=== PATIENT | male | born 1960 | race American Indian/Alaskan Native ===

== ENCOUNTER 2021-11-25 15:45 | Emergency (ER) | payer MEDICAID, OTHER ==
[~2021-11-25] VITALS: Ht 177.8 cm; Wt 90.7 kg
[2021-11-25] MEDS ORDERED: LISINOPRIL10 MG PO (16:24)
[2021-11-25] MEDS ORDERED: ROSUVASTATIN CA10 MG PO (16:24)
[2021-11-25] MEDS ORDERED: TAMSULOSIN HCL0.4 MG PO (16:25)
--- NOTE | 2021-11-27 17:35 | EKG ---
[facility] [address] [facility] [place], [place] [address] Signed Normal sinus rhythm Normal ECG No previous ECGs available Confirmed by LUCRECIA OLIVEIRA MD ([id number]) on 11/27/2021 5:35:33 PM Electronically Signed By: LUCRECIA OLIVEIRA MD 11/27/21 1735 PATIENT NAME: ANUP CONNORS Electrocardiogram DATE OF : 60 PHYSICIAN: LUCRECIA OLIVEIRA MD REPORT #: [id number] REPORT IS CONFIDENTIAL AND NOT TO BE RELEASED WITHOUT AUTHORIZATION
== END 2021-11-25 18:48 | disposition home or self-care (01) ==
LOC: ED 15:45
DX: R07.89 Other chest pain (principal); K64.5 Perianal venous thrombosis; Z79.899 Other long term (current) drug therapy
CPT/HCPCS: 36415; 71045; 80053; 84484; 85025; 93005; 93010; 99285-25; A9270

== ENCOUNTER 2024-02-02 12:12 | Inpatient (IN) | payer OTHER ==
[~2024-02-02] VITALS: Ht 177.8 cm
[~2024-02-02 12:12] MED LIST: LISINOPRIL10 MG PO; ROSUVASTATIN CA10 MG PO; TAMSULOSIN HCL0.4 MG PO
[2024-02-02] MEDS ORDERED: CEFTRIAXONE/SODIUM CHLORIDE 2 GM/100 ML PIGGYBACK IV ONE (12:30)
[2024-02-02] MEDS ORDERED: SODIUM CHLORIDE 0.9% 1,000 ML IV ONE ×2 (12:30→14:00)
[2024-02-02] MEDS ORDERED: FOLIC ACID1 MG PO (12:34)
[2024-02-02] MEDS ORDERED: PRIFTIN150 MG PO (12:34)
[2024-02-02] MEDS ORDERED: METHOTREXATE2.5 MG PO (12:35)
[2024-02-02] MEDS ORDERED: ISONIAZID300 MG PO (12:36)
[2024-02-02 13:12] LABS: HEMATOCRIT 44.2 % (35.0-50.0); HEMOGLOBIN 15.2 g/dL (12.0-18.0); MCH 32.7 (27-36); MCHC 34.3 g/dl (30-36); MCV 95.3 fl (81-99); PLATELET COUNT 136 K/uL (140-440); RBC 4.64 M/ul (4.3-5.7); RDW 13.8 (10.5-15.0)
[2024-02-02 13:16] LABS: BILIRUBIN, URINE NEGATIVE (negative); BLOOD/HGB, URINE NEGATIVE (Negative); KETONE, URINE TRACE (Negative); LEUK ESTERASE, URINE NEGATIVE (negative); NITRITE, URINE NEGATIVE (negative)
[2024-02-02 13:28] LABS: ALBUMIN 3.7 g/dL (3.4-5.0); ALBUMIN/GLOBULIN RATIO 0.93 (1.1-2.4); BILIRUBIN, TOTAL 1.2 ng/dL (0.2-1.0); BUN/CREATININE RATIO 8.54 (6.0-28.6); CREATININE, SERUM 1.17 mg/dL (0.70-1.30); PROTEIN, TOTAL 7.7 g/dL (6.4-8.2)
[2024-02-02 13:33] LABS: LACTIC ACID, BLOOD 1.9 mmol/L (0.4-2.0)
[2024-02-02] MEDS ORDERED: ondansetron HCL 4 MG/2 ML VIAL IV ONE (13:45)
[2024-02-02 13:57] LABS: BANDS, MANUAL DIFF 62; LYMPHOCYTES, MANUAL DIFF 5; MONOCYTES, MANUAL DIFF 2; NEUTROPHILS, MANUAL DIFF 31
[2024-02-02 13:58] LABS: INFLUENZA B NAA NEGATIVE (NEGATIVE); RESPIRATORY SYNCYTIAL VIR NAA NEGATIVE (NEGATIVE)
[2024-02-02 14:00] LABS: BASOPHILS, MANUAL DIFF 0; EOSINOPHILS, MANUAL DIFF 0
[2024-02-02] MEDS ORDERED: KETOROLAC TROMETHAMINE 15 MG/ML VIAL IV ONE (14:15)
[2024-02-02] MEDS ORDERED: ACETAMINOPHEN 500 MG TAB PO ONE (14:15)
[2024-02-02] MEDS ORDERED: IBUPROFEN 400 MG TAB PO PRN (17:00)
[2024-02-02] MEDS ORDERED: ondansetron HCL 4 MG/2 ML VIAL IV PRN (17:00)
[2024-02-02] MEDS ORDERED: PYRIDOXINE HCL 50 MG TAB PO SCH (17:09)
[2024-02-02] MEDS ORDERED: LORazepam 1 MG TAB PO PRN (17:15)
[2024-02-02] MEDS ORDERED: THIAMINE HCL 100 MG,FOLIC ACID 1 MG,MULTIVITAMINS 10 ML in SODIUM CHLORIDE 0.9% 1,000 ML IV ONE (17:15)
[2024-02-02 17:27] LABS: GLUCOSE, CSF 69 mg/dL (40-70); PROTEIN, CSF 34 mg/dL (15-45)
[2024-02-02 17:41] VITALS: BP 98/59
[2024-02-02 17:47] LABS: CLARITY, CEREBROSPINAL FLUID CLEAR; COLOR, CEREBROSPINAL FLUID COLORLESS; RBC, CEREBROSPINAL FLUID 2
[2024-02-02 17:48] LABS: WBC, CEREBROSPINAL FLUID <1
--- NOTE | 2024-02-02 17:56 | NUR ---
Patient to the medical floor. Patient is alert and oriented x4, no acute distress. BP a bit soft, unchanged from ER history. Patient able to stand to walk to unit bed. IV fluids started per order. Patient oriented to room.
[2024-02-02] MEDS ORDERED: FLU VACC TS2024-25(6MOS UP)/PF 1 EACH SYR IM ONE (18:30)
[2024-02-02 18:45] VITALS: BP 98/58
--- NOTE | 2024-02-02 19:00 | NUR ---
Pt report received from MACI Hernandez. Pt is resting, awake, supine in bed, family in room. Pt has blankets pulled up to his chin. television on. Pt reports he has a slight headache, declines ice/heat pack, advised he can't have more motrin until around 2000 hours. Pt denies further needs. White board updated, side rails up x4, call light in reach.
[2024-02-02 19:42] VITALS: BP 102/59
[2024-02-02 20:18] VITALS: BP 102/59
[2024-02-02] MEDS ORDERED: MAGNESIUM HYDROXIDE/AL HYDROX 30 ML CUP PO PRN (21:00)
--- NOTE | 2024-02-02 22:05 | NUR ---
call light answered, banana bag complete and pump cleared. iv site wnl, flushes easily and saline locked. no further needs, call light in reach and primary rn samantha updated and aware.
[2024-02-03] VITALS (19 sets, daily range): BP systolic 91–157; BP diastolic 53–85
--- NOTE | 2024-02-03 01:30 | NUR ---
call light answered, pt reports heartburn and requesting medication. prn meds unavailable, pt educated on next available dose and educated to raise hob, milk also provided per pt request. primary rn updated, call light in reach.
--- NOTE | 2024-02-03 02:01 | NUR ---
GOT REPORT FROM DRINKING WATER TECHNICIAN RN.
--- NOTE | 2024-02-03 02:01 | NUR ---
LUMBER TRIPPER OBTAINED VITALS AND INTAKE. NO NEW OUTPUT AT THIS TIME. PT STATES NO NEEDS AND CALL LIGHT IS WITHIN REACH.
--- NOTE | 2024-02-03 02:05 | NUR ---
INTO CHECK ON PATIENT. PATIENT HAS HOB ELEVATED. PT C/O ACID REFLUX. HE HAS HAD ALL THE MEDICATIONS FOR THIS AND ADVISED AT 3:30AM HE CAN HAVE MORE. PATIENT WAS DRINKING MILK. HE NOW HAS FRESH WATER. DENIES ANY CARES AT THIS TIME. AT BEDSIDE SLEEPING. PATIENT HAS OXYGEN ON VIA NC.
--- NOTE | 2024-02-03 04:11 | NUR ---
PATIENT CALLED WITH CALL LIGHT FOR MORE MEDICATION FOR HIS REFLUX. PATIENT STATES HE TAKES OMEPRAZOLE AT HOME TO CONTROL IT. WE WILL LET DOCTOR KNOW IN THE MORNING TO GET IT ORDERED FOR HIM. RECHECKED BP AND ITS STILL STOFT BUT CAME UP A POINT. WILL CONTINUE TO MONITOR. DENIES ANY SYMPTOMS. PATIENT WANTED TO KNOW IF WE HAD "EYE COVERS". PATIENT WAS GIVEN 2 QUIT PACKAGES FOR HIS AND HIM. DENIES ANY OTHER CARES AT THIS TIME.
--- NOTE | 2024-02-03 04:36 | NUR ---
PROVIDER WAS TRANSFERED OVER FROM CCU AND ADVISED OF SOFT BLOOD PRESSURE. DOCTOR SAID TO CRISTINA TO MONITOR. LONG KEEPING MAP OVER 65 AND SLEEPING HE IS OK LEAVING IT ALONE.
--- NOTE | 2024-02-03 05:44 | NUR ---
PATIENT GIVEN FLOMAX. LAB IN CURRENTLY TO DRAW LABS. WILL REPEAT BLOOD PRESSURE.
[2024-02-03 05:54] LABS: EOSINOPHILS 1.4 % (0-6); MONOCYTES 0.6 % (0-12); NEUTROPHILS 97.3 % (39-80)
[2024-02-03 05:57] LABS: BASOPHILS 0.3 % (0-2); HEMATOCRIT 39.4 % (35.0-50.0); HEMOGLOBIN 13.6 g/dL (12.0-18.0); LYMPHOCYTES 0.4 % (24-44); MCH 32.9 (27-36); MCHC 34.4 g/dl (30-36); MCV 95.7 fl (81-99); PLATELET COUNT 91 K/uL (140-440); RBC 4.12 M/ul (4.3-5.7)
[2024-02-03] MEDS ORDERED: TAMSULOSIN HCL 0.4 MG CAP PO SCH (06:00)
[2024-02-03 06:15] LABS: ALBUMIN 2.6 g/dL (3.4-5.0); ALBUMIN/GLOBULIN RATIO 0.84 (1.1-2.4); ANION GAP 14.3 (7-21); BILIRUBIN, TOTAL 2.6 ng/dL (0.2-1.0); BUN/CREATININE RATIO 11.39 (6.0-28.6); CALCIUM 8.1 mg/dL (8.5-10.1); CREATININE, SERUM 1.58 mg/dL (0.70-1.30); MAGNESIUM 1.8 mg/dL (1.8-2.4); POTASSIUM 4.3 mmol/L (3.5-5.1); PROTEIN, TOTAL 5.7 g/dL (6.4-8.2)
--- NOTE | 2024-02-03 07:24 | NUR ---
Patient resting in bed, eyes closed, respirations even and non labored. Patient has no notable distress.
[2024-02-03] MEDS ORDERED: THIAMINE HCL 100 MG TAB PO SCH (08:00)
[2024-02-03] MEDS ORDERED: FOLIC ACID 1 MG TAB PO SCH (08:00)
[2024-02-03 08:03] LABS: INR 1.29 (0.80-1.30); PROTIME 15.4 Sec (11.2-14.2)
--- NOTE | 2024-02-03 08:14 | NUR ---
Board has been updated and call light has been placed within reach.
[2024-02-03] MEDS ORDERED: PANTOPRAZOLE SODIUM 40 MG TABEC PO SCH (09:00)
[2024-02-03] MEDS ORDERED: ACETYLCYSTEINE IV ONE ×2 (09:15→14:15)
[2024-02-03] MEDS ORDERED: TRAMADOL HCL 50 MG TAB PO PRN (09:15)
[2024-02-03] MEDS ORDERED: DEXTROSE 5% IV ONE ×2 (09:15→14:15)
--- NOTE | 2024-02-03 09:53 | NUR ---
ULTRAM 50MG PO ADMIN FOR REPORTS OF HEADACHE.
--- NOTE | 2024-02-03 10:33 | NUR ---
IV ALARMING, ASSISTED WITH RESETTING. APPARENTLY PT ROLLED ONTO SIDE AND DUE TO POSITION OCCLUDED. CONTINUE INFUSION ORDERED. PT DENIES ANY FURTHER NEEDS AT THIS TIME, CALL LIGHT WITHIN REACH. PRESENT AT BEDSIDE.
--- NOTE | 2024-02-03 11:37 | NUR ---
Patient resting, eyes closed, respirations even and non labored. IV patent. Patient reports continued headache, ice pack provided. Patient reports generalized body aches. Family updated with plan of care. Call light within reach.
[2024-02-03] MEDS ORDERED: PHARMACY RENAL DOSE ADJUSTMENT 1 DOSE MISC PO SCH (12:00)
--- NOTE | 2024-02-03 12:25 | NUR ---
Patient requesting medication for acid reflux/nausea. Admin zofran 4mg iv and maalox 30ml at this time. IV patent, fluids infusing. Patient has no needs at this time.
--- NOTE | 2024-02-03 12:27 | NUR ---
Patient is sleeping, nurse when in the room during this rounding check.
--- NOTE | 2024-02-03 13:20 | NUR ---
Patient alert and oriented x4. Patient up to restroom to void. Vital signs taken post ambulation, heart rate tachy 128bmp. Temp 100.3f po. CIWA score of 9 at this time. Patient reports continues headache. Ativan 1mg Po admin admin. Iv site in right AC frequently alarming due to occlusion as it is positional. IV acetylcystein is behind on infusion time due to IV occlusion. Will attempt to place new IV site.
[2024-02-03] MEDS ORDERED: LORazepam 2 MG/ML VIAL IV/IM PRN (13:45)
[2024-02-03] MEDS ORDERED: PHENOBARBITAL SOD 130 MG/ML VIAL IV ONE (13:45)
[2024-02-03] MEDS ORDERED: LORazepam 2 MG/ML VIAL IV ONE (13:45)
--- NOTE | 2024-02-03 13:48 | NUR ---
VORB to admin additional dose of ATIVan 1MG iv once from Dr. Kilpatrick.
--- NOTE | 2024-02-03 13:52 | NUR ---
Nurse has been notified of high temp, and heart rate.
--- NOTE | 2024-02-03 13:52 | NUR ---
DISCUSSED VITALS WITH MD, INFORMED PATIENT IS WITHDRAWLING AT THIS TIME. VITALS Q1 HOURS PER PROTOCOL NOW. PRIMARY RN DISCUSSED ATIVAN IN MY PRESENCE AND CHANGING TO IV ROUTE. PER MD, NO NEED AT THIS TIME FOR REPEAT BLOOD CULTURES.
--- NOTE | 2024-02-03 14:17 | NUR ---
PATIENT TRANSFERRED TO CCU DEPT PER DR. SMART'S ORDER. BEDSIDE REPORT PROVIDED TO MACI SILVA. UPDATED PRIOR AND DURING TRANSFER.
[2024-02-03] MEDS ORDERED: ACETAMINOPHEN 325 MG TAB PO PRN (14:30)
--- NOTE | 2024-02-03 15:08 | NUR ---
PT PUT SUPERVISOR ELEMENTARY EDUCATION LIGHT IN ROOM. IN TO CHECK ON HIM AND HE REPORTED HE WAS "TRYING TO SELECT ONE OF THESE AT THE END. DO YOU KNOW HOW TO DO IT?" ASKED PT ORIENTATION QUESTIONS WHICH HE ANSWERS APPROPRIATELY. PT REINSTRUCTED ABOUT HIS CALL LIGHT FUNCTIONS. WASH CLOTHES TO CHEST AND FOREHEAD REWET WITH COLD WATER TEMP IS STILL 102.8
[2024-02-03] MEDS ORDERED: SODIUM CHLORIDE 0.9% 1,000 ML IV SCH ×2 (15:45→19:45)
[2024-02-03] MEDS ORDERED: PROCHLORPERAZINE EDISYLATE 10 MG/2 ML VIAL IV PRN (15:45)
[2024-02-03] MEDS ORDERED: CEFTRIAXONE/SODIUM CHLORIDE 2 GM/100 ML PIGGYBACK IV SCH ×2 (16:00→21:00)
--- NOTE | 2024-02-03 16:24 | NUR ---
PATIENT TRANSFERRED FROM MED/SURG 109 TO ROOM 127 AT 1400 FOR SEPSIS. PT PLACED ON INDUSTRIAL ENGINEERING INTERN AND HR IN THE 140s. TEMP 103.1 UPON ARRIVAL - MD NOTIFIED AND TYLENOL WAS GIVEN. PT CAN HAVE TYLENOL, JUST ONLY UP TO 2 GM/DAY PER MD. PT HAS BOUNDING PULSES THROUGHOUT. PRIOR TO TYLENOL BEING GIVEN, ICE PACKS WERE APPLIED TO AXILLA AND BILATERAL GROINS TO HELP COOL PATIENT, WELL COLD WASH CLOTH TO HEAD AND CHEST AREA. NO COVERS ON PATIENT EITHER. PT IS SLIGHTLY TREMULOUS, HAS A HEADACHE, AND IS NAUSEOUS. PT'S ROXANA IN ROOM. AFTER TYLENOL WAS GIVEN, HEART RATE STARTING TO TREND DOWN AND CURRENTLY 117. TEMP IS NOW 99.5 ORAL. PT STATES HE IS FEELING A LITTLE BETTER AND HAS BEEN SLEEPING. 2ND BAG OF ACETYLCYSTEIN INFUSING AT 125 ML/HR AND 3RD BAG DUE TO BE HUNG. NEW IV SITE STARTED IN LEFT OUTER FOREARM PER PHOTO TUBE ASSEMBLER. PT HAS BEEN ABLE TO VOID X1 IN URINAL 300 ML CONCENTRATED ORANGISH URINE. PLAN OF CARE DISCUSSED. WILL CONTINUE TO MONITOR.
--- NOTE | 2024-02-03 18:59 | NUR ---
NEW GOWN GIVEN TO PATIENT AFTER SWEATING AND SOAKING PREVIOUS GOWN. PT IS AWAKE, ALERT, AND CALM. IVF CONTINUE AT 125 ML/HR AND 3RD BAG OF ACETYLCYSTEIN IS INFUSING AT 62.5 ML/HR. PT ABLE TO EAT SOME CHICKEN NOODLE SOUP THAT HIS BROUGHT. PT HAS ALSO BEEN DRINKING WATER WELL. LAST VOID WAS 550 ML AND COLOR IS IMPROVING. BED ALARM FOR SAFETY. NO FURTHER ATIVAN HAS BEEN GIVEN TODAY AFTER THE PHENOBARBITAL WAS GIVEN. CIWA MONITORING TO CONTINUE.
--- NOTE | 2024-02-03 19:40 | NUR ---
ROUNDING IN ROOM AFTER REPORT FROM LEONA LUX DAYSHIFT. PATIENT ERSTING IN RECLINER, PATIENT RESTING IN BED EYES CLOSED RELAXED POSITION, RESP RATE 22/MIN
--- NOTE | 2024-02-03 20:27 | NUR ---
PATIENT ASSESSMENT COMPLETE, HE IS ORIENTED X3. HE HAS NOW REQUESTS OR CONCERNS TO VERBALIZE. HIS IS AT BEDSIDE, SHE IS UPDATED ON PLAN OF CARE. SHE HAS NO FURTHER NEEDS OR CONCERNS AT THIS TIME.
--- NOTE | 2024-02-03 22:12 | NUR ---
PATIENT BACK TO BED AFTER, GETTING OUT OF BED TO VOID, SETTING OFF THE BED ALARM, PATIENT AMBULATED TO BATHROOM WITH STEADY GAIT PER STAFF REPORT THAT ASSISTED. THIS RN INTO ASSESS, PATIENT REPORTS CHASE PAIN 5/10, NO OTHER CONCERNS AT THIS TIME.
--- NOTE | 2024-02-03 22:27 | NUR ---
PATIENT REPORTS 5/10 CHASE, ULTRAM ADMINISTERED, HE HAS NO OTHER CONCERNS OR REQUESTS.
[2024-02-04] VITALS (18 sets, daily range): BP systolic 112–168; BP diastolic 71–118
--- NOTE | 2024-02-04 00:40 | NUR ---
PATIENT CIWA IS 9, BASED ON SWEATING, TREMORS, HEADACHE, ALSO HEART RATE ELEVATED, 1MG PO ATIVAN ADMINISTERED AT THIS TIME. PATIENT VOIDED 400ML URINE IN URINAL. HE VERBALIZED NO FURTHER NEEDS AT THIS TIME.
--- NOTE | 2024-02-04 02:47 | NUR ---
PATIENT RESTING QUIETLY IN BED, NO DISTRESS NOTED, SLIGHT SNORING NOTED RR 24/MIN. PATIENTS IS RESTING IN RECLINER IN ROOM.
--- NOTE | 2024-02-04 04:07 | NUR ---
ROUNDING, PATIENT RESTING IN BED, NO DISTRESS NOTED RESP RATE 22/MIN
--- NOTE | 2024-02-04 05:14 | NUR ---
PATIENT A/O X4, HE REPORTS NO HEADACHE, NO PAIN ANYWHERE. HE IS CURRENTLY USING THE URINAL. AM ASSESSMENT COMPLETE. NO NEW CONCERNS. HE REPORTS HE HAS SLEPT WELL OVERNIGHT.
[2024-02-04 05:21] LABS: BASOPHILS 0.4 % (0-2); EOSINOPHILS 5.7 % (0-6); HEMATOCRIT 37.8 % (35.0-50.0); LYMPHOCYTES 6.2 % (24-44); MCH 32.7 (27-36); MCHC 34.5 g/dl (30-36); MCV 94.9 fl (81-99); MONOCYTES 5.4 % (0-12); NEUTROPHILS 82.3 % (39-80); PLATELET COUNT 85 K/uL (140-440); RBC 3.98 M/ul (4.3-5.7); RDW 14.1 (10.5-15.0)
[2024-02-04 05:38] LABS: ALBUMIN 2.4 g/dL (3.4-5.0); ALBUMIN/GLOBULIN RATIO 0.77 (1.1-2.4); ANION GAP 13.7 (7-21); BILIRUBIN, TOTAL 2.6 ng/dL (0.2-1.0); BUN/CREATININE RATIO 8.92 (6.0-28.6); CALCIUM 7.5 mg/dL (8.5-10.1); CREATININE, SERUM 1.12 mg/dL (0.70-1.30); POTASSIUM 3.7 mmol/L (3.5-5.1); PROTEIN, TOTAL 5.5 g/dL (6.4-8.2)
--- NOTE | 2024-02-04 09:24 | NUR ---
IN PATIENT'S ROOM FOR AM ASSESSMENT. PT IS AWAKE, CALM, AND ORIENTED X4. PT'S ROXANA IN ROOM. PATIENT REPORTS FEELING BETTER COMPARED TO YESTERDAY BUT STILL NOT FEELING GREAT, HAS A HEADACHE THAT IS 3/10 AT THIS TIME. PT WANTING TO TAKE A SHOWER AROUND 1100 THIS AM. CIWA IS 5 AT THIS TIME. WILL CONTINUE TO MONITOR.
--- NOTE | 2024-02-04 11:18 | NUR ---
preparing pt for shower. while getting ready, pt became nauseas and started vomitting. prn zofran given per emar. pt will attempt to shower once nausea settles. call light within reach
--- NOTE | 2024-02-04 11:55 | NUR ---
PATIENT HAD ONE BOUT OF EMESIS AROUND 1130. PATIENT STATES IT SORT OF CAME OUT OF NO WHERE. PRN ZOFRAN GIVEN. PATIENT THEN C/O HEADACHE AND PRN ULTRAM GIVEN FOR THAT. PT WANTING TO SHOWER AND IS NOW IN SHOWER ROOM IN 126 WITH HIS 'S ASSISTANCE. LINENS ON BED CHANGED. HR IN THE 110s WITH ACTIVITY. WILL CONTINUE TO MONITOR.
--- NOTE | 2024-02-04 12:29 | NUR ---
PATIENT DONE WITH SHOWER AND WHILE GETTING DRESSED, DOES BECOME NAUSEOUS AGAIN AND VOMITS IN TOILET. PRN COMPAZINE GIVEN. PT NOW RESTING IN BED BUT DOES NOT WANT ANY LUNCH AT THIS TIME.
[2024-02-04] MEDS ORDERED: lisinopriL 10 MG TAB PO SCH (13:32)
[2024-02-04 18:36] LABS: HEPATITIS A ANTIBODY, IGM Negative (Negative); HEPATITIS B CORE ANTIBODY, IGM Negative (Negative); HEPATITIS B SURFACE ANTIGEN Negative (Negative); HEPATITIS C AB CIA INTERP Negative (Negative); HEPATITIS C ANTIBODY CIA INDEX 0.12 IV (())
--- NOTE | 2024-02-04 19:45 | NUR ---
ROUNDING ON PATIENT, HE IS RESTING IN BED WITH EYES CLOSED, NO DISTRESS RR 25/MIN, AT BEDSIDE.
--- NOTE | 2024-02-04 20:41 | NUR ---
PATIENT ENDORSES 5/10 HEADACHE PAIN, WARM TEA PROVIDED TO ASSESS POSSIBLE LACK OF USUAL CAFFINE INTAKE. PATIENT REPORTS HE DOES LIKE HOT TEA AND WOULD LIKE TO TRY IT. PATIENT HAS NO OTHER COMPLAINTS AT THIS TIME. ASSESSMENT COMPLETE. NOTED SLIGHT TRACE EDEMA ON FEET, FEET ELEVATED.
--- NOTE | 2024-02-04 21:21 | NUR ---
PATIENT HAS SON IN ROOM TO VISIT AT THIS TIME.
--- NOTE | 2024-02-04 21:31 | NUR ---
PATIENT SITTING UP IN BED WATCHING TV TALKING WITH HIS DAUGHTER AND SON, HE REPORTS HE THINKS THE TEA IS HELPING HIS HEADACHE. NO OTHER REQUESTS OR CONCERNS.
[2024-02-05] VITALS (8 sets, daily range): BP systolic 148–165; BP diastolic 86–104
--- NOTE | 2024-02-05 01:08 | NUR ---
PATIENT RESTING QUIETLY IN BED, ALERT NAME, ASSESSMENT COMPLETE. OXYGEN TITRATED TO 1L N.C., PATIENT SAT UP AND DRANK WATER AND THEN BACK TO REST. NO NEEDS VERBALIZED
--- NOTE | 2024-02-05 03:35 | NUR ---
PATIENT USED CALL LIGHT TO NOTIFY STAFF THIS RN THAT HE HAD USED THE URINAL AND WOULD LIKE MORE WATER AND TISSUES FOR HIS NOSE. PATIENT IS ALERT AND ORINETED 94% OXYGEN SATURATION ON ROOM AIR NOW. PATIENT REPORTS NO FURTHER NEEDS AT THIS TIME. ROXANA PATIENTS SIGNIFICANT OTHER IS SLEEPING ON THE COUCH.
--- NOTE | 2024-02-05 05:25 | NUR ---
PATIENT REPORTS HIS HEADACHE IS BETTER THIS MORNING. ASSESSMENT COMPLETE, HE IS ALERT AND ORIENTED, CIWA 0, FRESH WATER PROVIDED.
[2024-02-05 05:28] LABS: BASOPHILS 0.5 % (0-2); EOSINOPHILS 2.6 % (0-6); HEMATOCRIT 38.6 % (35.0-50.0); HEMOGLOBIN 13.3 g/dL (12.0-18.0); LYMPHOCYTES 5.1 % (24-44); MCH 32.4 (27-36); MCHC 34.4 g/dl (30-36); MCV 94.3 fl (81-99); MONOCYTES 4.8 % (0-12); PLATELET COUNT 98 K/uL (140-440)
[2024-02-05 05:58] LABS: ALBUMIN 2.6 g/dL (3.4-5.0); ALBUMIN/GLOBULIN RATIO 0.81 (1.1-2.4); ANION GAP 14.6 (7-21); BILIRUBIN, TOTAL 3.4 ng/dL (0.2-1.0); BUN/CREATININE RATIO 8.79 (6.0-28.6); CALCIUM 8.1 mg/dL (8.5-10.1); CREATININE, SERUM 0.91 mg/dL (0.70-1.30); POTASSIUM 3.6 mmol/L (3.5-5.1); PROTEIN, TOTAL 5.8 g/dL (6.4-8.2)
--- NOTE | 2024-02-05 08:03 | NUR ---
PATIENT AWAKE, SITTING UP IN BED AND GETTING READY TO EAT BREAKFAST. PT REPORTS FEELING BETTER OVERALL, AND THAT HIS HEADACHE HAS IMPROVED SOME, RATING IT A 3/10 AT THIS TIME. PT DENIES NAUSEA OR ABD PAIN. IVF SALINE LOCKED. PT'S ROXANA REMAINS IN ROOM AND ATTENTIVE TO PATIENT. PATIENT HOPEFUL TO D/C HOME TODAY IF POSSIBLE.
[2024-02-05] MEDS ORDERED: SENNOSIDES/DOCUSATE 1 EA TAB PO SCH (09:00)
[2024-02-05] MEDS ORDERED: POLYETHYLENE GLYCOL 3350 1 PACKET PO SCH (09:00)
--- NOTE | 2024-02-05 10:30 | NUR ---
PATIENT DID HAVE NAUSEA AND 1 BOUT OF EMESIS THIS AM, AROUND 200 ML. PRN ZOFRAN GIVEN. PATIENT NO SITTING UP IN CHAIR. ABLE TO TAKE PO MEDS WITHOUT A PROBLEM. PT STILL HAS HEADACHE.
--- NOTE | 2024-02-05 11:57 | NUR ---
VISITED DURING SPIRITUAL CARE ROUNDS. PT APPEARED TO BE SLEEPING. DID NOT DISTURB. PROVIDED PRAYER.
[2024-02-05 12:03] LABS: QUANTIFERON TB GOLD PLUS Indeterminate (Negative)
--- NOTE | 2024-02-05 12:19 | NUR ---
UR CLINICAL REVIEW: [facility] FOR [facility]AL ADMISSION TO [facility] 02/02/24 @ 1629 ORDER MATCHES REG CLINICALS FAXED TO [facility] FOR REVIEW DISCHARGE TO HOME WHEN STABLE ANTICIPATE 1-2 DAY TO DC 02/07/24
--- NOTE | 2024-02-05 14:35 | NUR ---
Spoke with N[place]um with [place] He is usually active and does not use any DME. He drives. He lives in a house with 2 steps. He denies needs and plans on dc to home when medically cleared. No financial issues. Plan to go home in 1-2 days.
--- NOTE | 2024-02-05 15:35 | NUR ---
medications reconciled with pharmacy records and patient
--- NOTE | 2024-02-05 15:53 | NUR ---
DR. SHOEMAKER IN ROOM TO SEE PATIENT AT THIS TIME AND PLAN OF CARE BEING DISCUSSED. PT EXPRESSING HIS CONTINUED NAUSEA AND LACK OF APPETITE.
--- NOTE | 2024-02-05 16:38 | NUR ---
PATIENT WANTING TO GET UP AND TAKE A SHOWER AFTER ABX IS COMPLETE. PT TO BE ON CLEAR LIQUIDS SINCE THE FOOD ISN'T SETTLING WELL WITH HIM YET. PT TO BE TRANSFERRED TO MED/SURG WHEN ROOM AVAIALBE. TELEMETRY TO BE PLACED. FAMILY IN ROOM. PT EAGER TO GO HOME MAYBE TOMORROW.
--- NOTE | 2024-02-05 20:32 | NUR ---
PATIENT PROVIDED CLEAR LIQUID ENSURE. EDUCATION AND ON BOWEL MEDICATIONS AND WALKING TO PROMOTE MOTILITY. PATIENT ASKED FOR A GRANOLA BAR, THIS RN EXPLAINED AT THIS TIME POINT THE DOCTOR HAS YOU ON A CLEAR LIQUID DIET UNTIL YOUR BOWEL ACTIVITY IMPROVES.
--- NOTE | 2024-02-05 22:10 | NUR ---
BEDSIDE REPORT GIVEN TO ALEJANDRO Johnson RN IN ROOM 114. PATIENT AND PATIENT'S SIGNIFICANT OTHER INCLUDED IN REPORT. PATIENT AMBULATED TO ROOM 114 WITH STEADY GAIT. HE REPORTS HE HAD A LIQUID BM JUST BEFORE TRANSFER.
--- NOTE | 2024-02-05 22:36 | NUR ---
Transferred to room 114 from ICU, pt ambulated from ICU to MS. tolerated well, on room air, 2 SL patent. no c/o pain. tele#[address], SR. Oriented to room. Family in room
--- NOTE | 2024-02-06 00:31 | NUR ---
Resting, eyes closed, no s/sx discomofrt . on room air, family roomin in
[2024-02-06 00:32] VITALS: BP 148/86
[2024-02-06 01:50] VITALS: BP 141/97
[2024-02-06 01:56] VITALS: BP 141/97
--- NOTE | 2024-02-06 01:57 | NUR ---
resting, awakens easily, no c/o h/a or any discomfort. has voided and tolerating clear liquids well, no n/v, rooming in
--- NOTE | 2024-02-06 04:12 | NUR ---
Resting, eyes closed, tele#[address] SR, on room air. Family in room
[2024-02-06 05:48] LABS: BASOPHILS 0.5 % (0-2); HEMATOCRIT 39.5 % (35.0-50.0); HEMOGLOBIN 13.7 g/dL (12.0-18.0); LYMPHOCYTES 8.5 % (24-44); MCH 32.7 (27-36); MCHC 34.7 g/dl (30-36); MCV 94.3 fl (81-99); MONOCYTES 7.7 % (0-12); NEUTROPHILS 75.3 % (39-80); PLATELET COUNT 120 K/uL (140-440); RBC 4.19 M/ul (4.3-5.7); RDW 14.3 (10.5-15.0)
[2024-02-06 05:57] VITALS: BP 146/93
[2024-02-06 06:07] LABS: ALBUMIN 2.7 g/dL (3.4-5.0); ALBUMIN/GLOBULIN RATIO 0.77 (1.1-2.4); ANION GAP 12.5 (7-21); BUN/CREATININE RATIO 8.33 (6.0-28.6); CALCIUM 8.2 mg/dL (8.5-10.1); CREATININE, SERUM 0.96 mg/dL (0.70-1.30); POTASSIUM 3.5 mmol/L (3.5-5.1); PROTEIN, TOTAL 6.2 g/dL (6.4-8.2)
[2024-02-06 06:09] VITALS: BP 146/93
--- NOTE | 2024-02-06 06:10 | NUR ---
awake, cooperative, tele#[address], SR, no c/o CP or SOB. c/o h/a, medicated with Tylenol, tolerating liquids well, no n/v this shift, Independent. has voided QS and had a bm today
--- NOTE | 2024-02-06 08:37 | NUR ---
Patient awake, alert and oriented x4. Patient reports he is feeling much better and would like to discharge home today, will updated provider. Patient denies needs at this time. Personal supplies and call light within reach.
[2024-02-06 09:28] VITALS: BP 159/90
[2024-02-06] MEDS ORDERED: VITAMIN B-1100 MG PO (09:57)
[2024-02-06] MEDS ORDERED: VITAMIN B-650 MG PO (09:57)
== END 2024-02-06 10:36 | disposition home or self-care (01) | DRG 872 ==
LOC: ED 12:12 → MS 16:33 → CCU 02-03 14:00 → MS 02-05 22:10
PROVIDERS: Emergency Medicine; ADMIT Student in an Organized Health Care Education/Training Program; ATTEND Student in an Organized Health Care Education/Training Program
PROC: 3E03329 Introduction of Other Anti-infective into Peripheral Vein, Percutaneous Approach (ICD-10-PCS; principal; 2024-02-02)
PROC: HZ2ZZZZ Detoxification Services for Substance Abuse Treatment (ICD-10-PCS; 2024-02-02)
PROC: 009U3ZX Drainage of Spinal Canal, Percutaneous Approach, Diagnostic (ICD-10-PCS; 2024-02-02)
DX: A41.9 Sepsis, unspecified organism (principal); F10.939 Alcohol use, unspecified with withdrawal, unspecified; T36.6X5A Adverse effect of rifampicins, initial encounter; E80.6 Other disorders of bilirubin metabolism; I10 Essential (primary) hypertension; E78.5 Hyperlipidemia, unspecified; T37.1X5A Adverse effect of antimycobacterial drugs, initial encounter; L40.9 Psoriasis, unspecified; K76.0 Fatty (change of) liver, not elsewhere classified; N40.0 Benign prostatic hyperplasia without lower urinary tract symptoms; Z86.15 Personal history of latent tuberculosis infection; Z90.49 Acquired absence of other specified parts of digestive tract; Z98.890 Other specified postprocedural states; Z79.899 Other long term (current) drug therapy; Z71.51 Drug abuse counseling and surveillance of drug abuser
CPT/HCPCS: 36415; 62270; 71045; 76705; 80053; 80074; 81003; 82945; 83605; 83735; 84157; 85025; 85610; 87040; 87070; 87075; 87205; 87502; 89051; 99285-25; A9270; A9270-GY; J0132; J0696; J0780; J1885; J2060; J2405; J2560; J3411; J7030; J7060; J7070; U0002

== ENCOUNTER 2024-04-18 20:31 | Observation (INO) | payer BC, OTHER ==
[~2024-04-18] VITALS: Ht 177.8 cm; Wt 96.5 kg
[~2024-04-18 20:31] MED LIST changes: +FOLIC ACID1 MG PO; +ISONIAZID300 MG PO; +METHOTREXATE2.5 MG PO; +PRIFTIN150 MG PO; +VITAMIN B-1100 MG PO; +VITAMIN B-650 MG PO
[2024-04-18 21:08] LABS: BASOPHILS 0.7 % (0-2); EOSINOPHILS 0.7 % (0-6); HEMOGLOBIN 15.6 g/dL (12.0-18.0); LYMPHOCYTES 0.5 % (24-44); MCH 32.4 (27-36); MCHC 33.9 g/dl (30-36); MCV 95.6 fl (81-99); MONOCYTES 1.9 % (0-12); NEUTROPHILS 96.2 % (39-80); PLATELET COUNT 210 K/uL (140-440); RBC 4.82 M/ul (4.3-5.7); RDW 14.5 (10.5-15.0)
[2024-04-18] MEDS ORDERED: FAMOTIDINE 20 MG/ 2 ML VIAL IV ONE (21:15)
[2024-04-18] MEDS ORDERED: DEXAMETHASONE SOD PHOS 10 MG/ML VIAL IV ONE (21:15)
[2024-04-18] MEDS ORDERED: SODIUM CHLORIDE 0.9% 1,000 ML IV ONE (21:15)
[2024-04-18] MEDS ORDERED: diphenhydrAMINE HCL 50 MG/ML VIAL IV ONE (21:15)
[2024-04-18 21:20] LABS: ALBUMIN 3.8 g/dL (3.4-5.0); ALBUMIN/GLOBULIN RATIO 0.9 (1.1-2.4); ANION GAP 15.9 (7-21); BILIRUBIN, TOTAL 0.8 ng/dL (0.2-1.0); BUN/CREATININE RATIO 11.71 (6.0-28.6); CALCIUM 9.1 mg/dL (8.5-10.1); CREATININE, SERUM 1.11 mg/dL (0.70-1.30); POTASSIUM 4.9 mmol/L (3.5-5.1)
[2024-04-18] MEDS ORDERED: IBUPROFEN 600 MG TAB PO ONE (21:45)
[2024-04-18] MEDS ORDERED: ACETYLCYSTEINE IV ONE (22:00)
[2024-04-18] MEDS ORDERED: DEXTROSE 5% IV ONE (22:00)
[2024-04-18] MEDS ORDERED: LORazepam 2 MG/ML VIAL IV ONE (22:00)
[2024-04-18 22:01] LABS: PH, VENOUS 7.477 (7.31-7.41)
[2024-04-18 23:18] LABS: BILIRUBIN, URINE NEGATIVE (negative); BLOOD/HGB, URINE NEGATIVE (Negative); KETONE, URINE NEGATIVE (Negative); LEUK ESTERASE, URINE NEGATIVE (negative); NITRITE, URINE NEGATIVE (negative); PH, URINE 6.5 (5-7)
[2024-04-19] MEDS ORDERED: DEXTROSE 5% IV ONE (02:00)
[2024-04-19] MEDS ORDERED: ACETYLCYSTEINE IV ONE (02:00)
[2024-04-19] MEDS ORDERED: ondansetron HCL 4 MG/2 ML VIAL IV PRN (02:30)
[2024-04-19] MEDS ORDERED: PYRIDOXINE HCL 100 MG/ML VIAL IV ONE ×2 (02:30→03:30)
[2024-04-19] MEDS ORDERED: MORPHINE SULFATE 4 MG/ML VIAL IV PRN (02:30)
[2024-04-19] MEDS ORDERED: LACTATED RINGER'S 1,000 ML IV SCH (02:30)
[2024-04-19] MEDS ORDERED: IBUPROFEN 600 MG TAB PO PRN ×2 (02:30→15:45)
[2024-04-19 03:02] VITALS: BP 136/88
[2024-04-19 06:45] VITALS: BP 151/85
[2024-04-19 06:47] LABS: BASOPHILS 0.4 % (0-2); EOSINOPHILS 0.2 % (0-6); HEMATOCRIT 44.4 % (35.0-50.0); HEMOGLOBIN 14.6 g/dL (12.0-18.0); LYMPHOCYTES 1.2 % (24-44); MCH 31.9 (27-36); MCHC 32.9 g/dl (30-36); MONOCYTES 1.9 % (0-12); NEUTROPHILS 96.3 % (39-80); PLATELET COUNT 187 K/uL (140-440); RBC 4.57 M/ul (4.3-5.7); RDW 14.5 (10.5-15.0)
[2024-04-19] MEDS ORDERED: ACETYLCYSTEINE IV SCH (07:00)
[2024-04-19] MEDS ORDERED: DEXTROSE 5% IV SCH (07:00)
[2024-04-19 07:06] LABS: ALBUMIN 3.3 g/dL (3.4-5.0); ALBUMIN/GLOBULIN RATIO 0.92 (1.1-2.4); ANION GAP 16.2 (7-21); BILIRUBIN, TOTAL 0.4 ng/dL (0.2-1.0); CALCIUM 8.9 mg/dL (8.5-10.1); CREATININE, SERUM 1.2 mg/dL (0.70-1.30); MAGNESIUM 2.1 mg/dL (1.8-2.4); PHOSPHORUS, INORGANIC 1.5 mg/dL (2.5-4.9); POTASSIUM 4.2 mmol/L (3.5-5.1); PROTEIN, TOTAL 6.9 g/dL (6.4-8.2)
[2024-04-19] MEDS ORDERED: POTASSIUM PHOSPHATE 30 MMOL in DEXTROSE 5% 500 ML IV ONE (08:30)
[2024-04-19] MEDS ORDERED: DEXTROSE 5% 1,000 ML IV SCH (08:30)
[2024-04-19] MEDS ORDERED: PYRIDOXINE HCL 50 MG TAB PO SCH (09:00)
[2024-04-19 10:46] LABS: INR 1.13 (0.80-1.30); PROTIME 14.5 Sec (11.2-14.2)
[2024-04-19 11:40] VITALS: BP 167/93
[2024-04-19] MEDS ORDERED: PHARMACY RENAL DOSE ADJUSTMENT 1 DOSE MISC PO SCH (12:00)
[2024-04-19 14:03] VITALS: BP 158/89
[2024-04-19] MEDS ORDERED: ISONIAZID300 MG PO (14:38)
[2024-04-19 14:43] VITALS: BP 158/89
[2024-04-19] MEDS ORDERED: VOLTAREN ARTHRI20 GM TOP (15:27)
[2024-04-19] MEDS ORDERED: CLOBETASOL PROP50 ML TOP (15:28)
[2024-04-19] MEDS ORDERED: CLOBETASOL PROP15 G3 TOP (15:28)
[2024-04-19] MEDS ORDERED: ROSUVASTATIN CA10 MG PO (15:29)
[2024-04-19] MEDS ORDERED: ACETAMINOPHEN 500 MG TAB PO PRN (15:45)
--- NOTE | 2024-04-19 22:11 | EKG ---
[facility] [address] [place] [address] Signed Sinus tachycardia Otherwise normal ECG When compared with ECG of 25-NOV-2021 15:45, No significant change was found Confirmed by Lucita Shoemaker MD () on 04/19/2024 10:10:41 PM Electronically Signed By: LUCITA SHOEMAKER MD 04/19/242210 PATIENT NAME: ANUP CONNORS Electrocardiogram DATE OF : 60 PHYSICIAN: LUCITA SHOEMAKER MD REPORT #: [id number] REPORT IS CONFIDENTIAL AND NOT TO BE RELEASED WITHOUT AUTHORIZATION
== END 2024-04-19 17:54 | disposition home or self-care (01) ==
LOC: ED 20:31 → CCU 20:32
PROVIDERS: Family Medicine; ADMIT Family Medicine; ATTEND Family Medicine
DX: R11.0 Nausea (principal); K71.9 Toxic liver disease, unspecified; E83.39 Other disorders of phosphorus metabolism; T37.1X5A Adverse effect of antimycobacterial drugs, initial encounter; R73.9 Hyperglycemia, unspecified; Z22.7 Latent tuberculosis; M19.90 Unspecified osteoarthritis, unspecified site; I10 Essential (primary) hypertension; E78.5 Hyperlipidemia, unspecified; N40.0 Benign prostatic hyperplasia without lower urinary tract symptoms; Z88.8 Allergy status to other drugs, medicaments and biological substances; Z79.899 Other long term (current) drug therapy; Z90.49 Acquired absence of other specified parts of digestive tract
CPT/HCPCS: 36415; 71045; 80053; 81003; 82803; 83605; 83735; 84100; 85025; 85610; 93005; 93010; 96361; 96365; 96366; 96375; 99285-25; A9270; G0378; G0480; J0132; J1100; J1200; J2060; J3415; J7030; J7060; J7070; J7121